=== PATIENT | female | born 1980 | race Caucasian/White ===

== ENCOUNTER 2019-05-16 09:15 | Emergency (ER) | payer MEDICAID ==
[~2019-05-16] VITALS: Ht 162.6 cm; Wt 84.4 kg
[2019-05-16 09:22] VITALS: BP 122/85
--- NOTE | 2019-05-16 09:32 | NUR ---
PT HERE WITH C/O DENTAL PAIN AND FACIAL SWELLING ON THE LEFT SIDE. PT STATES "I HAVE A BROKEN TOOTH AND IT HURT BAD YESTERDAY BUT TODAY THE TYLENOL IS WORKING. I PLAN TO DO A WALK IN AT [facility] ON SATURDAY."
--- NOTE | 2019-05-16 09:58 | NUR ---
Patient/Caregiver given discharge instructions and they have confirmed that they understand the instructions. Patient ambulatory with steady gait.
== END 2019-05-16 10:44 | disposition home or self-care (01) ==
LOC: ED 10:10
DX: K02.9 Dental caries, unspecified (principal)
CPT/HCPCS: 99283